=== PATIENT | male | born 1995 | race Two or more races ===

== ENCOUNTER 2017-07-29 12:41 | Emergency (ER) | payer OTHER ==
[~2017-07-29] VITALS: Ht 177.8 cm; Wt 104.3 kg
--- NOTE | 2017-07-29 12:44 | NUR ---
PT TO ER BED 13. C/O CHEST/EPIGASTRIC PAIN W/ GENERALIZED BODY ACHES SINCE LAST NIGHT. PT STATES WOKE UP THIS AM W/ THE SAME SYMPTOMS. ADMITS TO SMOKING MARIJUANA THIS MORNING. FEBRILE AND [employer]. AWAITING MD SMITH.
--- NOTE | 2017-07-29 13:10 | NUR ---
MIRIAM SCHAEFER AT BEDSIDE FOR EVAL.
--- NOTE | 2017-07-29 13:15 | NUR ---
IV LINE STARTED. BLOOD DRAWN AND SENT TO LAB.
[2017-07-29 13:21] LABS: BASOPHILS # (AUTO) 0.2 /CMM (0.0-0.2); BASOPHILS % (AUTO) 0.8 % (0.0-2.0); HEMATOCRIT 49 % (39-51); HEMOGLOBIN 17.2 g/dL (13.5-17.5); LYMPHOCYTES # (AUTO) 1.5 /CMM (0.8-4.8); LYMPHOCYTES % (AUTO) 5.8 % (20.0-44.0); MEAN CORPUSCULAR HEMOGLOBIN 31 PG (26.0-33.0); MEAN CORPUSCULAR HGB CONC 35 g/dl (31.0-36.0); MEAN CORPUSCULAR VOLUME 87 fL (80-96); MONOCYTES # (AUTO) 1.4 /CMM (0.1-1.30); MONOCYTES % (AUTO) 5.2 % (2.0-12.0); NEUTROPHILS # (AUTO) 22.9 /CMM (1.8-8.9); NEUTROPHILS % (AUTO) 88.2 % (43.0-81.0); PLATELET COUNT (AUTO) 239 /CMM (150-450); RDW COEFFICIENT OF VARIATION 11.3 (11.5-15.0); RED BLOOD CELL COUNT(AUTO) 5.58 MIL/uL (4.5-6.0)
[2017-07-29] MEDS ORDERED: ONDANSETRON HCL/PF 4 MG/2 ML VIAL ONE (13:26)
[2017-07-29] MEDS ORDERED: MORPHINE SULFATE INJ 4 MG/ML DISP.SYRIN ONE (13:27)
[2017-07-29] MEDS ORDERED: ONDANSETRON HCL/PF 4 MG/2 ML VIAL IVP ONE (13:30)
[2017-07-29] MEDS ORDERED: MORPHINE SULFATE INJ 2 MG/ML DISP.SYRIN IV ONE (13:30)
[2017-07-29] MEDS ORDERED: IV NS 0.9% 1,000 ML BAG IV ONE (13:30)
[2017-07-29 13:32] LABS: CALCIUM, SERUM 9.6 mg/dL (8.5-10.1); CREATININE 0.9 mg/dL (0.6-1.3); POTASSIUM 4.3 mmol/L (3.5-5.1)
[2017-07-29 13:37] LABS: ALBUMIN 4.3 g/dL (3.4-5.0); BILIRUBIN,DIRECT 0.1 mg/dL (0.0-0.2); BILIRUBIN,TOTAL 1.3 mg/dL (0.2-1.0); TOTAL PROTEIN, SERUM 8.2 g/dL (6.4-8.2)
[2017-07-29] MEDS ORDERED: ACETAMINOPHEN ES 500 MG TABLET ONE (13:58)
[2017-07-29] MEDS ORDERED: ACETAMINOPHEN 325 MG TABLET PO ONE (14:00)
--- NOTE | 2017-07-29 14:27 | NUR ---
PT STATES STILL UNABLE TO PROVIDE URINE SAMPLE AT THIS TIME.
[2017-07-29 14:50] LABS: APPEARANCE,URINE Clear (CLEAR); BILIRUBIN,URINE Negative (NEGATIVE); BLOOD, URINE Trace-intact Ery/uL (NEGATIVE); COLOR,URINE Yellow (YELLOW); KETONES,URINE 15 (NEGATIVE); LEUKOCYTE ESTERASE ,URINE Negative (NEGATIVE); NITRITE, URINE Negative (NEGATIVE); PROTEIN,URINE Negative (NEGATIVE); UGLUCOSE Negative (NEGATIVE); UROBILINOGEN,URINE 0.2 EU/dL (0.2)
[2017-07-29 15:00] LABS: BACTERIA,URINE None seen /HPF (None Seen); SQUAMOUS EPITHELIAL CELL,UR Few /HPF (None Seen); WBC,URINE 0-3 /HPF (0-3)
--- NOTE | 2017-07-29 15:29 | NUR ---
PT IS STILL C/O SEVERE GENERALIZED PAIN. KAMARI SCHAEFER MADE AWARE.
[2017-07-29] MEDS ORDERED: HYDROMORPHONE INJ 0.5 MG/0.5 ML SYRINGE IV ONE (15:30)
[2017-07-29] MEDS ORDERED: HYDROMORPHONE 1 MG/1 ML DISP.SYRIN ONE (15:38)
[2017-07-29 15:55] LABS: MONOTEST NEGATIVE (NEGATIVE)
--- NOTE | 2017-07-29 17:04 | NUR ---
Patient discharged to home in stable condition. Written and verbal after care instructions given. Patient verbalizes understanding of instruction.IV removed. Catheter intact and site benign. Pressure and 4x4 applied to site. No bleeding noted.
[2017-07-29 17:09] VITALS: BP 128/76
== END 2017-07-29 17:10 | disposition home or self-care (01) ==
LOC: ER 12:45
DX: R10.13 Epigastric pain (principal); J02.9 Acute pharyngitis, unspecified; B34.9 Viral infection, unspecified; F12.10 Cannabis abuse, uncomplicated; Z90.89 Acquired absence of other organs
CPT/HCPCS: 36415; 71045-TC; 80048-TC; 80076-TC; 81000-TC; 83690-TC; 85025-TC; 86308-TC; 86403-TC; 87400; A4606; J1170; J2270; J2405; J7030; Z7610

== ENCOUNTER 2017-07-29 23:12 | Emergency (ER) | payer OTHER ==
[~2017-07-29] VITALS: Ht 177.8 cm; Wt 104.3 kg
--- NOTE | 2017-07-30 00:23 | NUR ---
BB SELF; GENERALIZED BODY PAIN X 1 DAY. PT AOX3 RR EVEN AND UNLABORED. NO SOB NOTED. NAD NOTE.D NO NVD AT THIS TIME. PT GOWNED AND PLACED ON MONITOR WAITING FOR MD SMITH.
[2017-07-30] MEDS ORDERED: IV NS 0.9% 500 ML IV ONE (00:48)
[2017-07-30] MEDS ORDERED: CT SWABBABLE VALVE TRANS SET 1 EA INFUS.SET MC ONE (00:48)
[2017-07-30] MEDS ORDERED: IOHEXOL-300 100 ML VIAL IV ONE (00:48)
[2017-07-30] MEDS ORDERED: ACETAMINOPHEN ES 500 MG TABLET ONE (00:50)
[2017-07-30] MEDS ORDERED: ONDANSETRON 4 MG TAB.RAPDIS ONE ×2 (00:51→03:09)
[2017-07-30] MEDS ORDERED: ACETAMINOPHEN ES 500 MG TABLET PO ONE (01:00)
[2017-07-30] MEDS ORDERED: ONDANSETRON 4 MG TAB.RAPDIS SL ONE ×2 (01:00→03:30)
[2017-07-30] MEDS ORDERED: oxyCODONE/APAP (5/325 MG) 1 UDTAB TABLET PO ONE (01:00)
--- NOTE | 2017-07-30 01:01 | NUR ---
PT TO CT.
[2017-07-30 01:29] LABS: BASOPHILS % (AUTO) 0.2 % (0.0-2.0); HEMATOCRIT 44 % (39-51); HEMOGLOBIN 15.4 g/dL (13.5-17.5); LYMPHOCYTES # (AUTO) 0.8 /CMM (0.8-4.8); LYMPHOCYTES % (AUTO) 3.2 % (20.0-44.0); MEAN CORPUSCULAR HEMOGLOBIN 31 PG (26.0-33.0); MEAN CORPUSCULAR HGB CONC 35 g/dl (31.0-36.0); MEAN CORPUSCULAR VOLUME 88 fL (80-96); MONOCYTES # (AUTO) 1.2 /CMM (0.1-1.30); MONOCYTES % (AUTO) 4.7 % (2.0-12.0); NEUTROPHILS # (AUTO) 22.9 /CMM (1.8-8.9); NEUTROPHILS % (AUTO) 91.9 % (43.0-81.0); PLATELET COUNT (AUTO) 227 /CMM (150-450); RDW COEFFICIENT OF VARIATION 12.1 (11.5-15.0); RED BLOOD CELL COUNT(AUTO) 4.98 MIL/uL (4.5-6.0)
[2017-07-30] MEDS ORDERED: HYDROCODONE/APAP 10/325MG 1 EA TABLET PO ONE (01:30)
[2017-07-30] MEDS ORDERED: HYDROCODONE/APAP 10/325MG 1 EA TABLET ONE (01:34)
[2017-07-30 01:49] LABS: CALCIUM, SERUM 9.1 mg/dL (8.5-10.1); POTASSIUM 3.6 mmol/L (3.5-5.1)
[2017-07-30 01:53] LABS: ALBUMIN 4.1 g/dL (3.4-5.0); TOTAL PROTEIN, SERUM 7.9 g/dL (6.4-8.2)
[2017-07-30 01:57] LABS: BAND % (MANUAL) 1 % (0.0-5.0); LYMPHOCYTES % (MANUAL) 4 % (16-48); MONOCYTES % (MANUAL) 3 % (0-11.0); NEUTROPHILS % (MANUAL) 92 (42-76)
--- NOTE | 2017-07-30 02:45 | NUR ---
CALLED MARTHA FOR CT ABD RESULT CLARIFICATION.
--- NOTE | 2017-07-30 03:08 | NUR ---
DR. COLÓN AT BEDSIDE SPEAKING TO PT REGARDING RESULTS
--- NOTE | 2017-07-30 03:12 | NUR ---
IV removed. Catheter intact and site benign. Pressure and 4x4 applied to site. No bleeding noted. Patient discharged to home in stable condition. Written and verbal after care instructions given. Patient verbalizes understanding of instruction. ambulatory with a steady gait. instructed pt not to drive. pt verbalize understanding.
[2017-07-30 03:14] VITALS: BP 132/68
== END 2017-07-30 03:14 | disposition home or self-care (01) ==
LOC: ER 23:13
DX: M79.1 Myalgia (principal); R06.02 Shortness of breath; J02.9 Acute pharyngitis, unspecified; F12.10 Cannabis abuse, uncomplicated; Z90.89 Acquired absence of other organs
CPT/HCPCS: 36415; 80053-TC; 82150-TC; 83690-TC; 85025-TC; A4606; J7040; Q0162; Q9967; Z7610